=== PATIENT | female | born 1955 | race Caucasian/White ===

== ENCOUNTER 2016-10-27 10:31 | Inpatient (IN) | payer BC ==
--- NOTE | 2016-10-21 10:08 | Rehab Joint Replacement Pre-Op ---
Rehab Joint Replacement Pre-Op - Pre-Op Visit Reviewed Items Scheduled for Post Op Visit: No Pradeep Hose/Garment Measure THR - Thigh High: Yes Exercise Reviewed: Yes Stair Climbing: Yes Cane/Walker/Crutch Training: Yes Vend Equipment - Cane or Walker and OT Kit: Walker List of Venders in the Area: Yes Shower Chair Transfers: Yes (Pt has walk in shower, needs bench she was going to try to borrow one from senior center near her.) Car Transfers: Yes Bed Transfers: Yes Medical History Forms Issued: N/A Functional Scale Forms Issued: N/A Additional Comments: Pt did well. she wanted to see if she could have front wheels. I told her to ask surgeon, if approved we can modify walker.
[2016-10-21 11:48] LABS: ANION GAP 13.7 (7-16); CARBON DIOXIDE 25.3 mmol/L (22-30); CREATININE 1.2 mg/dL (0.52-1.04)
[~2016-10-27 10:31] MED LIST: CEFAZOLIN 2 Gram 50 ML IVPB ONE; CELECOXIB 100 MG CAPSULE PO ONE; FAMOTIDINE 20MG TABLET PO ONE; MECLIZINE 25 MG TABLET PO ONE; METOCLOPRAMIDE 10 MG TABLET PO ONE; VANCOMYCIN HCL 1,000 MG in 0.9 % SODIUM CHLORIDE 250ML 250 ML IVPB ONE
[2016-10-27 13:33] LABS: ABO GROUP A; ANTIBODY SCREEN NEGATIVE (NEGATIVE); RH TYPE POSITIVE
[2016-10-27] MEDS ORDERED: PROPOFOL 10 MG/ML VIAL IV ONE (14:00)
[2016-10-27] MEDS ORDERED: *PACU ONLY* KETAMINE HCL 10 MG/ML (20ML) VIAL IV ONE (14:00)
[2016-10-27] MEDS ORDERED: MIDAZOLAM HCL 2MG/2ML VIAL IV ONE (14:00)
[2016-10-27] MEDS ORDERED: FENTANYL PF 100MCG/2ML VIAL IV ONE (14:00)
[2016-10-27] MEDS ORDERED: TRANEXAMIC ACID 1,000 MG/10 ML ML IV ONE (15:04)
[2016-10-27 15:48] LABS: HEMATOCRIT 31.3 % (35.0-47.0); HEMOGLOBIN 10.2 gm/dl (11.6-16.0)
[2016-10-27] MEDS ORDERED: HYDROMORPHONE HCL 2 MG/ML VIAL IM PRN (16:49)
[2016-10-27] MEDS ORDERED: ACETAMINOPHEN 325 MG TAB PO PRN (16:49)
[2016-10-27] MEDS ORDERED: MAGNESIUM HYDROXIDE 30 ML UDC PO PRN (16:49)
[2016-10-27] MEDS ORDERED: ZOLPIDEM TARTRATE 5 MG TABLET PO PRN (16:49)
[2016-10-27] MEDS ORDERED: ONDANSETRON HCL IV 4 MG/2 ML VIAL IVP PRN (16:49)
[2016-10-27] MEDS ORDERED: BISACODYL 10 MG SUPP RC PRN (16:49)
[2016-10-27] MEDS ORDERED: KETOROLAC 30 MG/ML VIAL IVP PRN ×2 (16:49)
[2016-10-27] MEDS ORDERED: HYDROCODONE/APAP 10/325 TABLET PO PRN (16:49)
[2016-10-27] MEDS ORDERED: HYDROMORPHONE HCL 1 MG/ML CPJ IM PRN (16:49)
[2016-10-27] MEDS ORDERED: AL HYDROX/MAG HYDROX 30ML UD PO PRN (16:49)
[2016-10-27] MEDS: CEFAZOLIN 2 Gram 2 GM in DEXTROSE 1 BAG IVPB SCH (17:28)
--- NOTE | 2016-10-27 17:37 | Physical Therapy Tx Note ---
Physical Therapy Tx Note - Treatment Note Physical Therapy Tx Note: Detail (Patient arrived to room after 5:00. Pt arrived in room at 5:30 , patient could wiggle toes but had no sensation in LE. The patient and PT did not feel it was safe to stand. Patient will be evaluated Wednesday am. Patient to ambulate with nursing this evening.)
[2016-10-27] MEDS ORDERED: PATIENT OWN MED: INH PRN (18:27)
[2016-10-27] MEDS: HYDROCODONE/APAP 10/325 TABLET PO PRN (18:43)
[2016-10-27] MEDS: POTASSIUM CHLORIDE/D5-0.9%NACL 20 MEQ in PREMIX D5 + NS 1000ML 1 BAG IV SCH (18:44)
[2016-10-27] MEDS: HYDROMORPHONE HCL 1 MG/ML CPJ IM PRN ×2 (19:56→23:25)
[2016-10-27] MEDS ORDERED: PATIENT OWN MED: MC SCH (20:00)
[2016-10-27] MEDS ORDERED: AMIODARONE HCL 200 MG TABLET PO SCH (22:00)
[2016-10-27] MEDS: AMITRIPTYLINE 25 MG TABLET PO SCH (22:18)
[2016-10-27] MEDS: FERROUS SULFATE 325 MG TAB PO SCH ×2 (22:19→22:20)
[2016-10-27] MEDS: RIVAROXABAN 10 MG TABLET PO SCH (22:19)
[2016-10-27] MEDS: CHLORDIAZEPOXIDE 25 MG CAPSULE PO SCH (22:20)
[2016-10-27] MEDS: DOCUSATE SODIUM 100 MG CAPSULE PO SCH (22:20)
[2016-10-28] MEDS ORDERED: HYDROCODONE/APAP 5/325MG TABLET PO PRN (00:01)
[2016-10-28] MEDS ORDERED: PROAIR INH PRN (00:12)
[2016-10-28] MEDS: HYDROCODONE/APAP 10/325 TABLET PO PRN ×4 (00:42→19:37)
[2016-10-28] MEDS: CEFAZOLIN 2 Gram 2 GM in DEXTROSE 1 BAG IVPB SCH ×2 (00:44→09:35)
[2016-10-28] MEDS: POTASSIUM CHLORIDE/D5-0.9%NACL 20 MEQ in PREMIX D5 + NS 1000ML 1 BAG IV SCH ×2 (03:42→14:46)
[2016-10-28] MEDS ORDERED: VANCOMYCIN HCL 1 MG in 0.9 % SODIUM CHLORIDE 250ML 250 ML IVPB ONE (04:00)
[2016-10-28] MEDS: CHLORDIAZEPOXIDE 25 MG CAPSULE PO SCH ×3 (06:41→21:47)
[2016-10-28 07:05] LABS: HEMOGLOBIN 9.2 gm/dl (11.6-16.0)
[2016-10-28] MEDS: HYDROMORPHONE HCL 1 MG/ML CPJ IM PRN (08:18)
[2016-10-28] MEDS: DOCUSATE SODIUM 100 MG CAPSULE PO SCH ×2 (09:46→21:55)
[2016-10-28] MEDS: FERROUS SULFATE 325 MG TAB PO SCH ×2 (09:46→21:47)
--- NOTE | 2016-10-28 10:01 | Rehab Evaluation ---
Patient Information - Patient Information Ordered Treatment: PT Evaluate and Treat Status: Initial Evaluation Surgery: Yes (RTHA ON 10/27/16) Date of Surgery: 10/27/16 History: Detail (Pt is 60 y/o female A&O X 3, Amitted for surgery due to O-A R hip.) Past Medical/Surgical Hx: PAST MEDICAL/SURGICAL HISTORY Past Surgical History T/A TUBAL LIGATION PMH - Respiratory Hx Respiratory Disorders Yes Hx Chronic Obstructive Yes: INHALERS HELP Pulmonary Disease (COPD) Hx of Productive Cough Yes: SINUS CONGESTION, ALLERGIES PMH - Cardiovascular Hx Cardiovascular Disorders Yes Hx Hypertension Yes: NOT TAKING ANYTHING CURRENTLY Exercise Tolerance Fair PMH - Neuro Hx Neurological Disorders Yes Hx Dizziness Yes: OCC TAKES OTC DRAMAMINE Hx Neuropathy Yes: [place] Comment: TREMORS IN HANDS PMH - GI Hx Gastrointestinal Disorders No Hx Weight Loss/Weight Gain Yes: R/T PREDNISONE USE IN PAST PMH - Hx Genitourinary Disorders No Hx Age of Menopause 48 PMH - Endocrine Hx Endocrine Disorders No Hx Diabetes No Hx Thyroid Disease No PMH - Musculoskeletal Hx Musculoskeletal Disorders Yes Hx Arthritis Yes: degenerative joint right hip Comment: PAIN RIGHT HIP INCREASES WITH AMBULATION AND CAN 'T SLEEP PMH - Psych Hx Psychiatric Problems No PMH - Hematology/Oncology Hx Hematology/Oncology No Disorders Premorbid Status: Detail (Hip pain interferring with sleep and functional activities.) Social History: Detail (Pt lives with suki in single family home with no steps to enter and all living areas on first floor. Pt is retired.) Precautions: [place], Fall, Other (Hip precautions.) - Time With Patient Total Time Spent With Patient (Min): 50 Treatment Procedures: Detail (Evaluation, HEP review, transfers, ambulation around the room, into bathroom patient toileted and marched in place at bedside for five minutes without complaints. All hip precautions reviewed. Patient did have some difficulty understanding and following restrictions associated with rotation of the hip (during direction changes with ambulation)) Subjective Information - Subjective Information Per Patient (see above.) Objective Data - Pain Pain Present: Yes Pain Intensity: 8 Pain Scale Used: Numeric (1 - 10) - Mental Status Patient Orientation: Oriented x3 - Visual Perception Appears within normal limits for therapeutic activities - ROM Other (bilateral upper extremities and left lower extremity within normal limits throughout. Right lower extremity knee and ankle WNL hip N/A.) - Strength/Tone Other (bilateral UE +4/5-5/5 throughout, LLE also +4/5-5/5 throughout, RLE functionally assessed at -3/5 to 4/5 throughout,) - Coordination Appears within normal limits for therapeutic activities (WNL within limitation associated with RTHA) - Bed Mobility Needs Assist (assist need for RLE) - Transfers Needs Assist (verbal review for hip precautions.) - Balance Balance Sitting: Good Balance Standing: Good (with standard walker) - Sensation Intact - Gait Detail (ambulation with standard walker around the room X2 and marching in place with walker X5 minutes, mild sorness reported, patient WB on right LE approximately 70%) - Special Tests No Therapy Assessment - Therapy Assessment Detail (patient did very well with the first therapy session. She did have some questions and confusion regarding hip position durning direction change while ambulating. No complaints or issues associated with HEP.) Patient Education - Patient Education Teaching Topic: Equipment Use, Exercise/Activity, Precautions Response: Return Demonstration, Reinforcement Needed, Verbalize Understanding Teaching Method: Discussion, Demonstration, Handout Teaching Recipient: Patient Barriers To Learning: None Problem List - Problem List Physical Therapy Problem List: Detail (restricted mobility associated with RTHA , needs HEP, specific precautions associated with RTHA.) Goals - Goals Physical Therapy Goals: Independent with knowledge of hip precautions, independent with bed mobility, independent transfers (bed, toilet, car), independent ambulation with standard walker level surfaces and stairs maximum 100ft, independent with HEP. Prognosis - Prognosis Good Plan - Plan Physical Therapy Plan: Patient to be seen 1-2x daily until all goals achieved or patient discharged.
[2016-10-28] MEDS ORDERED: BUPIVACAINE 0.5% W/EPI MPF 30 ML VIAL IVP ONE (10:02)
[2016-10-28] MEDS: SYMBICORT IH SCH ×2 (10:32→22:13)
[2016-10-28] MEDS: SPIRIVA 18 MCG INH SCH (10:34)
--- NOTE | 2016-10-28 11:10 | Rehab Evaluation ---
Patient Information - Patient Information Diagnosis: right ROBERTA Ordered Treatment: OT Evaluate and Treat Status: Initial Evaluation Surgery: Yes (R ROBERTA ON 10/27/16) Date of Surgery: 10/27/16 History: Detail (Pt is 60 y/o female A&O X 3, Admitted for surgery due to O-A R hip.) Past Medical/Surgical Hx: PAST MEDICAL/SURGICAL HISTORY Past Surgical History T/A TUBAL LIGATION PMH - Respiratory Hx Respiratory Disorders Yes Hx Chronic Obstructive Yes: INHALERS HELP Pulmonary Disease (COPD) Hx of Productive Cough Yes: SINUS CONGESTION, ALLERGIES PMH - Cardiovascular Hx Cardiovascular Disorders Yes Hx Hypertension Yes: NOT TAKING ANYTHING CURRENTLY Exercise Tolerance Fair PMH - Neuro Hx Neurological Disorders Yes Hx Dizziness Yes: OCC TAKES OTC DRAMAMINE Hx Neuropathy Yes: [place] Comment: TREMORS IN HANDS PMH - GI Hx Gastrointestinal Disorders No Hx Weight Loss/Weight Gain Yes: R/T PREDNISONE USE IN PAST PMH - Hx Genitourinary Disorders No Hx Age of Menopause 48 PMH - Endocrine Hx Endocrine Disorders No Hx Diabetes No Hx Thyroid Disease No PMH - Musculoskeletal Hx Musculoskeletal Disorders Yes Hx Arthritis Yes: degenerative joint right hip Comment: PAIN RIGHT HIP INCREASES WITH AMBULATION AND CAN 'T SLEEP PMH - Psych Hx Psychiatric Problems No PMH - Hematology/Oncology Hx Hematology/Oncology No Disorders Premorbid Status: Detail (Pt lives with spouse in a 2 story house with basement , she stays on first floor. She has no steps at the entrance. She has a walk in shower and usually stands to shower. She has a standard height toilet. Prior to admission she was Ind with all ADLs and IADLs although spouse will be assisting after discharge. She has a standard walker and a straight cane.) Social History: Detail (Pt has a supportive spouse.) Precautions: [place], Fall, Other (Hip precautions.) - Time With Patient Total Time Spent With Patient (Min): 50 Treatment Procedures: Detail (OT eval low complexity) Subjective Information - Subjective Information Per Patient Objective Data - Pain Pain Present: Yes (9/10 pain in right hip) - Mental Status Patient Orientation: Oriented x3 - Visual Perception Appears within normal limits for therapeutic activities - ROM Within normal limits (Chung UE AROM WNL) - Strength/Tone Within normal limits (Chung UE MMT WNL) - Coordination Appears within normal limits for therapeutic activities - Bed Mobility Independent (Ind with supine to sit and sit to supine.) - Balance Balance Sitting: Good - Sensation Intact - ADL's/IADL's Detail (Pt educated and demonstrated learning of LE dressing using adaptive equipment while maintaining total hip precautions. Pt purchased a hip kit including long sponge, teaching assistant, long shoe horn, sock aid, dressing stick and elastic shoe laces. Pt demonstrated donning and doffing of slippers/socks and pants using equipment and modified technique. Reviewed need for elevated toilet /commode and provided list of vendors.) Problem List - Problem List Physical Therapy Problem List: Detail (restricted mobility associated with RTHA , needs HEP, specific precautions associated with RTHA.) Occupational Therapy Problem List: Detail (No current OT problems identified.) Goals - Goals Physical Therapy Goals: Independent with knowledge of hip precautions, independent with bed mobility, independent transfers (bed, toilet, car), independent ambulation with standard walker level surfaces and stairs maximum 100ft, independent with HEP. Occupational Therapy Goals: No OT goals identified. Prognosis - Prognosis Good Plan - Plan Physical Therapy Plan: Patient to be seen 1-2x daily until all goals achieved or patient discharged. Occupational Therapy Plan: No further OT needs idenfied at this time.
--- NOTE | 2016-10-28 16:09 | Physical Therapy Tx Note ---
Physical Therapy Tx Note - Treatment Note Tolerated: Good (Pt. did not report increase in hip pain throughout tx session. Pt. did not request break.) Total Time Spent With Patient: 45 Physical Therapy Tx Note: Detail (Pt. independently ambulated for 108 feet with standard walker. Pt. performed bed mobility and sit<->stand transfer independently with excellent positioning of the operative LE. Pt. verbalized understanding of walker positioning for stair use, however, pt. did not perform stairs; pt. does not have stairs in the home environment and reports that she does not have to use stairs in the community. Pt. verbalized correct positioning of walker and lower extremity on stairs and was found appropriate during pre-op appointment for stair assessment. Pt. expressed excellent understanding of hip precautions.) Physical Therapy Problem List: Detail (restricted mobility associated with RTHA , needs HEP, specific precautions associated with RTHA.) Physical Therapy Goals: Independent with knowledge of hip precautions, independent with bed mobility, independent transfers (bed, toilet, car), independent ambulation with standard walker level surfaces and stairs maximum 100ft, independent with HEP. Prognosis: Good (Pt. is appropriate for D/C from inpatient PT.) Physical Therapy Plan: Pt. will be seen for reassessment on 10-29-16 to ensure understanding of precautions and plans for D/C.
[2016-10-28] MEDS: AMITRIPTYLINE 25 MG TABLET PO SCH (21:47)
[2016-10-28] MEDS: RIVAROXABAN 10 MG TABLET PO SCH (21:47)
[2016-10-29 06:29] LABS: HEMOGLOBIN 9.2 gm/dl (11.6-16.0)
[2016-10-29] MEDS: HYDROCODONE/APAP 10/325 TABLET PO PRN (07:30)
[2016-10-29] MEDS: SYMBICORT IH SCH (07:50)
[2016-10-29] MEDS: SPIRIVA 18 MCG INH SCH (07:55)
[2016-10-29] MEDS: FERROUS SULFATE 325 MG TAB PO SCH (09:00)
--- NOTE | 2016-10-29 09:49 | Physical Therapy Tx Note ---
Physical Therapy Tx Note - Treatment Note Tolerated: Good (Patient ambulating well with standard walker, WBAT but corrected technique as patient was not keeping right LE forward and safer with right LE ahead of left. Using walker correctly, transferring correctly. Understands hip precautions well.) Total Time Spent With Patient: 15 Physical Therapy Tx Note: Detail (Patient seen in room, already up trying to get shoes on and found shoe horn, so assisted patient to get shoes on over yellow safety socks. Patient ambulated in room and corrected gait pattern and reviewed hip precautions with patient. Feels home situation won't be a problem for mobility. Plans to have home health for several visits then outpatient PT possibly if needs it.) Physical Therapy Problem List: Detail (restricted mobility associated with RTHA , needs HEP, specific precautions associated with RTHA.) Physical Therapy Goals: Independent with knowledge of hip precautions, independent with bed mobility, independent transfers (bed, toilet, car), independent ambulation with standard walker level surfaces and stairs maximum 100ft, independent with HEP. Prognosis: Good (Patient getting ready to go home right now so reason for short treatment. Doing very well with gait and mobility. Does not have stairs to go on at home but has practiced steps before surgery and remembers progression if needed. Has met goals to be discharged home.) Physical Therapy Plan: Pt. will be seen for reassessment on 10-29-16 to ensure understanding of precautions and plans for D/C.
--- NOTE | 2016-10-29 12:47 | Discharge Summary ---
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 She was admitted after right total hip arthroplasty. Postoperatively, she did extremely well. Her hospital course was unremarkable. DISCHARGE INSTRUCTIONS: The plan is to discharge her to home in the care of her family with home PT visiting nursing has been arranged. She will be given Questa for pain and Xarelto for DVT prophylaxis. She will follow up in my office in 4 weeks. She will resume her preoperative medications. These discharge instructions were given directly to her and her discharge condition was good. FINAL DIAGNOSIS/PRIMARY DIAGNOSIS: Avascular necrosis of the right hip with collapse. SECONDARY DIAGNOSES: 1. Chronic alcohol use, stable. 2. COPD, stable. OPERATIONS AND PROCEDURE: Cementless right total hip arthroplasty. CC: Paul Shine MD MTDD
--- NOTE | 2016-10-29 12:52 | Operative Note ---
DATE OF SURGERY: 10/27/2016 PREOPERATIVE DIAGNOSIS: Avascular necrosis with collapse of the right hip. POSTOPERATIVE DIAGNOSIS: Avascular necrosis with collapse of the right hip. OPERATION: Cementless right total hip arthroplasty using [employer] components, with a size 52 no hole reflection cup, 32 mm diameter 35 degree offset wire, a size 13 high-offset cementless [place] stem with a -3 32mm diameter Oxinium head. Surgeon: Frandy Shi MD Anesthesia: Spinal preparation Chloraprep. INDIVIDUAL CONSIDERATIONS: None. PROCEDURE: The patient was taken to the operating room and had a successful induction with spinal anesthetic. She was then placed on her side right side up on the operating table. Her right leg and hip were prepped and draped in the usual fashion. The patient had direct posterior approach to the hip. Sharp dissection carried down through skin and subcutaneous tissue. Small veins were coagulated with a Bovie. The tensor and gluteal fascia was opened along the entire length of the incision. Deep retractors were placed. Short external rotators were identified at piriformis fossa and removed exposing the posterior capsule. Posterior capsulectomy was performed. There was debris and multiple loose bodies within the joint. The hip was dislocated. There was basically a large chunk out of the superior aspect of the head. Using an oscillating saw, femoral neck cut was made roughly a fingerbreadth above the less trochanter. There was a thick ligamentum which was debrided and a large redundant capsule anteriorly which was debrided out sharply. I went ahead and started to medialize with a 43 reamer, reamed to the introitus to a 51 for a 52 cup. I then slightly under-reamed to a 52. After thorough irrigation, I impacted a size 52 no hole reflection cup and 20 degrees in forward flexion and 40 degrees of adduction using the extraarticular alignment guide and bony landmarks. There was solid cementless fixation. The center cap screw was placed and then I went ahead and packed a 35 degree offset line with the offset posteriorly and inferiorly. This gave an excellent stage of acetabular construct and this was packed off. The proximal femur was blocked and delivered into the wound and box cutting osteotome was used to remove proximal metaphyseal bone. Mid stem reaming was done to a size 13. I started barely feeling cortex at 12. I could have probably gone more distally but that was all I could do proximally. I went ahead and broached to a 13, which gave solid fit. Used the calcar reamer. The anteversion was dialed in at about 25-30 degrees. With a -3 trial, there was excellent stability. I went ahead and then thoroughly irrigated out the canal with pulsatile Betadine and saline. After preparing this and irrigating out, I went ahead and impacted a size 13 high-offset [place] stem with solid calcar contact and solid cementless fixation. I went ahead again and trialed with a -3 head. This gave excellent stability. Went ahead and dried off the Davey Taper, impacted a size 32 Oxinium head and after irrigation, made sure everything was clear of any debris, I reduced the hip. Full extension, external rotation absolute stability. No shock. Full flexion up to the chest was fully stable even with it internally rotated 90 degrees it was still stable. Actually, it would not come out unless you pulled it out with a hook but we had good length and stability. After irrigation, hemostasis was obtained with a Bovie. I then went ahead and closed the fascia after mixing a gram of tranexamic acid with 40 mL of saline, placed this deep in the fascia. The fascia was then closed with a running #2 quill, subcu was closed with running 0 quill, skin was closed with running 2-0 quill. Skin and subcutaneous tissue prior to closure were infiltrated with 0.5% Marcaine with epinephrine 30 mL and a sterile bulky compressive Aquacel type dressing was applied. The patient tolerated the procedure well. Needle and sponge counts were correct. Estimated blood loss was minimal and she was taken back to recovery in good condition. There were no complications. DEANNA
== END 2016-10-29 09:45 | disposition home health service (06) | DRG 470 ==
LOC: MEDSURG 12:01
PROVIDERS: ADMIT Orthopaedic Surgery; ATTEND Orthopaedic Surgery
PROC: 0SR904A Replacement of Right Hip Joint with Ceramic on Polyethylene Synthetic Substitute, Uncemented, Open Approach (ICD-10-PCS; principal; 2016-10-27 14:00)
DX: M87.051 Idiopathic aseptic necrosis of right femur (principal); J44.9 Chronic obstructive pulmonary disease, unspecified; F10.20 Alcohol dependence, uncomplicated
CPT/HCPCS: 80048; 85014; 85018; 86850; 86900; 86901; 94640; 94760; 97116; 97165; 97530; J1170; J3480; J7050